=== PATIENT | male | born 1990 | race Caucasian/White ===

== ENCOUNTER 2016-10-26 18:47 | Emergency (ER) | payer OTHER ==
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
--- NOTE | 2016-10-27 13:56 | ED CLINICAL REPORT ---
Clinical Report - Physicians/Mid Levels [facility] [address] [place] [address] 10/26/2016 18:49 Patient: MARY RICHARD Time Seen: 19:27. Arrived- Came in police custody. Historian- police. History limited by altered mental status. HISTORY OF PRESENT ILLNESS Chief Complaint: DRUG OVERDOSE. This occurred just prior to arrival. Toxic symptoms present in ED with drowsiness. Single drug taken- he says that he took 10 tablets of an uncertain strength of Thorazine. No alcohol recently. The patient has been upset. (officer from the [facility] [employer] reports that they had contacted the patient for a previous outstanding warrant. Apparently [facility] he was in an argument with his girlfriend. He told the officer that he took 10 tablets of Thorazine as he wanted to try and get some rest. He also told the officer that he did it because he was irritated with his girlfriend However, he denies any suicidal or homicidal ideation.). REVIEW OF SYSTEMS No chills, fever, sweats, calf pain or chest pain. No cough, difficulty breathing, pedal edema, palpitations or abdominal pain. No constipation, diarrhea, nausea, vomiting or urinary problems. All systems otherwise negative, except as recorded above. PAST HISTORY Problems: no known problems. Additional Surgeries: no known surgeries. Medications: None. Allergies: PCN. SOCIAL HISTORY Current every day heavy tobacco smoker (cigarette)- less than 1 pack per day. History of drug use: marijuana. No alcohol use. ADDITIONAL NOTES The nursing notes have been reviewed. PHYSICAL EXAM Vital Signs: 10/26/2016 18:51 BP: 109/62. HR: 93. RR: 18. O2 saturation: 100%. Temp: 98.1 F. Pain level now: 0/10. Have been reviewed. Appearance: The patient is somnolent. Eyes: Pupils equal, round and reactive to light. No nystagmus. ENT: Normal ENT inspection. Pharynx normal. Neck: Normal inspection. Neck supple. CVS: Normal heart rate and rhythm. Heart sounds normal. Respiratory: No respiratory distress. Breath sounds normal. Abdomen: Soft and nontender. No organomegaly. Back: Normal inspection. Skin: Skin warm and dry. Normal skin color. No rash. Normal skin turgor. Extremities: Extremities exhibit normal ROM. No lower extremity edema. Neuro: Alertness is decreased. LABS, X-RAYS, AND EKG EKG: No acute process. Normal EKG. Rate: 73. Prior EKG unavailable. The study has been independently viewed by me. Laboratory Tests: UA-Culture if indicated: (KATYA: 10/26/2016 00:53) ( [facility] 10/27/2016 01:18) Final results Test Result Flag Units (Reference) URINE COLOR YELLOW URINE APPEARANCE CLEAR URINE GLUCOSE NEGATIVE (NEGATIVE) URINE BILIRUBIN NEGATIVE (NEGATIVE) URINE BILIRUBIN ICTOTEST NEGATIVE (NEGATIVE) URINE KETONE 2+ (NEGATIVE) URINE SPECIFIC GRAVITY >= 1.030 (1.010-1.030) URINE PH 6.0 (5.0-8.0) URINE PROTEIN 1+ (NEGATIVE) URINE UROBILINOGEN 0.2 EU/dL (0.2-1.0) URINE NITRITE NEGATIVE (NEGATIVE) URINE BLOOD NEGATIVE (NEGATIVE) URINE LEUK ESTERASE NEGATIVE (NEGATIVE) URINE RBC RARE rbc/hpf (0-1) URINE WBC 0-1 wbc/hpf (0-1) URINE EPITHELIAL CELLS NONE SEEN EPI/hpf (0-5) URINE BACTERIA NONE SEEN (NONE SEEN) URINE COMMENT CULT NOT INDICATED 2+ MUCUSURINE CULTURES ARE SET-UP BASED ON THE FOLLOWING CRITERIA:POSITIVE NITRITEPOSITIVE LEUKOCYTE ESTERASEGREATER THAN 10 WHITE BLOOD CELLSMODERATE (2+) OR GREATER BACTERIA CBC w Diff: (KATYA: 10/26/2016 20:00) ( [facility] 10/26/2016 20:10) Final results Test Result Flag Units (Reference) WHITE BLOOD COUNT 3.5 L K/uL (4.5-11.5) RED BLOOD COUNT 3.96 L M/uL (4.50-5.90) HEMOGLOBIN 11.8 L gm/dL (13.5-17.5) HEMATOCRIT 34.9 L % (41.0-53.0) MEAN CELL VOLUME 88 fL (80-100) MEAN CORPUSCULAR HGB 30 pg (26-34) MEAN CORPUSCULAR HGB CONC 34 g/dL (31-37) RED CELL DISTRIBUTION WIDTH 12.9 % (11.6-14.8) PLATELET COUNT 175 K/uL (150-400) NEUTROPHIL % 58.4 % (50-75) LYMPH % 23.3 L % (25-40) MONO % 17.1 H % (3-14) EOSINOPHIL % 0.7 % (0-4) BASOPHIL % 0.5 % (0-2) Urine Drug Screen: (KATYA: 10/26/2016 00:53) ( [facility] 10/27/2016 01:30) Final results Test Result Flag Units (Reference) AMPHETAMINE/METHAMPHETAMINE POSITIVE H (NEGATIVE) BARBITURATE NEGATIVE (NEGATIVE) BENZODIAZEPINE NEGATIVE (NEGATIVE) CANNABINOID POSITIVE H (NEGATIVE) COCAINE NEGATIVE (NEGATIVE) ECSTASY POSITIVE H (NEGATIVE) METHADONE NEGATIVE (NEGATIVE) OPIATE NEGATIVE (NEGATIVE) The urine drug screen is a qualitative screening test fordrug overdose and abuse. All screen results should beconsidered as presumptive.Drugs screened for are as follows:BenzodiazepinesCocaineAmphetamines/MetamphetaminesTHC (Tetrahydrocannabinol)OpiatesBarbituratesEcstasyMethadonePositive results are unconfirmed. For confirmation, notifythe lab for the specimen to be sent to the reference lab.All confirmations must be performed by a differentmethodology.The ingestion of natural herbal and plant productscontaining Ephedra/Ephedra metabolites can produce in urineone or more substances capable of cross reacting withamphetamine/methamphetamine immunoassays. These testsprovide a preliminary result only. A more specificalternative chemical method must be used to obtain aconfirmed analytical result. Salicylate Level: (KATYA: 10/26/2016 20:00) ( [facility] 10/26/2016 20:21) Final results Test Result Flag Units (Reference) SALICYLATE <2.8 L mg/dL (2.8-20) CMP: (KATYA: 10/26/2016 20:00) ( MsgRcvd 10/26/2016 20:42) Final results Test Result Flag Units (Reference) GLUCOSE 87 mg/dL (70-110) BUN 15 mg/dL (7-18) CREATININE 0.8 mg/dL (0.6-1.3) Estimated GFR >60 mL/min Estimated GFR- >60 mL/min Note: Persistent reduction over 3 months in eGFR<60 mL/min/1.73 m2 defines CKD. Patients with eGFR values>=60 mL/min/1.73 m2 may also have CKD if evidence ofpersistent proteinuria. Additional information may be foundat www.kidney.org. SODIUM 139 mmol/L (136-145) POTASSIUM 3.0 L mmol/L (3.5-5.1) CHLORIDE 102 mmol/L (98-107) CARBON DIOXIDE 25 mmol/L (21-32) CALCIUM 8.8 mg/dL (8.5-10.1) TOTAL PROTEIN 7.3 g/dL (6.4-8.2) ALBUMIN 3.9 g/dL (3.3-5.0) BILIRUBIN, TOTAL 0.7 mg/dL (0.0-1.0) ALKALINE PHOSPHATASE 56 U/L (46-116) AST (SGOT) 38 H U/L (15-37) ALT (SGPT) 31 U/L (12-78) LIPASE 60 L U/L (73-393) AMYLASE 19 L U/L (25-115) ACETAMINOPHEN < 2.0 L ug/mL (10-30) ETHYL ALCOHOL <3 L mg/dL (3-10) . PROGRESS AND PROCEDURES Course of Care: 21:06 10/26/16. case was discussed with Dr. Sheldon at change of shift. We reviewed the patient's history and physical examination findings. Dr. Sheldon will follow-up on the results of the patient's pending studies, will continue to observe him and will arrange an appropriate disposition for him - MW 23:32 10/26/16. Assumed care at 2100. Lab pending Urine still not obtained at this time. 13:55 10/27/16. Spoke w/ patient now that he is lucid and is adamant that there was no intent of self harm and is not currently suicidal. Patient is stable. Disposition: Discharged home in good and improved condition. Condition: good. CLINICAL IMPRESSION Accidental single drug overdose (Thorazine). INSTRUCTIONS Follow-up: Screening today revealed the patient's blood pressure to be in the normal range. Follow-up with: [facility], , , [address], , [place], [id number] Follow up in about two days. Call for an appointment. (Electronically signed by Moises Mendoza Dr. 10/27/2016 21:40)
--- NOTE | 2016-10-27 13:56 | ED CLINICAL REPORT ---
Clinical Report - Physicians/Mid Levels [facility] [address] [place] [address] 10/26/2016 18:49 Patient: MARY RICHARD Time Seen: 19:27. Arrived- Came in police custody. Historian- police. History limited by altered mental status. HISTORY OF PRESENT ILLNESS Chief Complaint: DRUG OVERDOSE. This occurred just prior to arrival. Toxic symptoms present in ED with drowsiness. Single drug taken- he says that he took 10 tablets of an uncertain strength of Thorazine. No alcohol recently. The patient has been upset. (officer from the [facility] [employer] reports that they had contacted the patient for a previous outstanding warrant. Apparently while they were at [facility] residence he was in an argument with his girlfriend. He told the officer that he took 10 tablets of Thorazine as he wanted to try and get some rest. He also told the officer that he did it because he was irritated with his girlfriend However, he denies any suicidal or homicidal ideation.). REVIEW OF SYSTEMS No chills, fever, sweats, calf pain or chest pain. No cough, difficulty breathing, pedal edema, palpitations or abdominal pain. No constipation, diarrhea, nausea, vomiting or urinary problems. All systems otherwise negative, except as recorded above. PAST HISTORY Problems: no known problems. Additional Surgeries: no known surgeries. Medications: None. Allergies: PCN. SOCIAL HISTORY Current every day heavy tobacco smoker (cigarette)- less than 1 pack per day. History of drug use: marijuana. No alcohol use. ADDITIONAL NOTES The nursing notes have been reviewed. PHYSICAL EXAM Vital Signs: 10/26/2016 18:51 BP: 109/62. HR: 93. RR: 18. O2 saturation: 100%. Temp: 98.1 F. Pain level now: 0/10. Have been reviewed. Appearance: The patient is somnolent. Eyes: Pupils equal, round and reactive to light. No nystagmus. ENT: Normal ENT inspection. Pharynx normal. Neck: Normal inspection. Neck supple. CVS: Normal heart rate and rhythm. Heart sounds normal. Respiratory: No respiratory distress. Breath sounds normal. Abdomen: Soft and nontender. No organomegaly. Back: Normal inspection. Skin: Skin warm and dry. Normal skin color. No rash. Normal skin turgor. Extremities: Extremities exhibit normal ROM. No lower extremity edema. Neuro: Alertness is decreased. LABS, X-RAYS, AND EKG EKG: No acute process. Normal EKG. Rate: 73. Prior EKG unavailable. The study has been independently viewed by me. Laboratory Tests: UA-Culture if indicated: (KATYA: 10/26/2016 00:53) ( [facility] [place] Final results Test Result Flag Units (Reference) URINE COLOR YELLOW URINE APPEARANCE CLEAR URINE GLUCOSE NEGATIVE (NEGATIVE) URINE BILIRUBIN NEGATIVE (NEGATIVE) URINE BILIRUBIN ICTOTEST NEGATIVE (NEGATIVE) URINE KETONE 2+ (NEGATIVE) URINE SPECIFIC GRAVITY >= 1.030 (1.010-1.030) URINE PH 6.0 (5.0-8.0) URINE PROTEIN 1+ (NEGATIVE) URINE UROBILINOGEN 0.2 EU/dL (0.2-1.0) URINE NITRITE NEGATIVE (NEGATIVE) URINE BLOOD NEGATIVE (NEGATIVE) URINE LEUK ESTERASE NEGATIVE (NEGATIVE) URINE RBC RARE rbc/hpf (0-1) URINE WBC 0-1 wbc/hpf (0-1) URINE EPITHELIAL CELLS NONE SEEN EPI/hpf (0-5) URINE BACTERIA NONE SEEN (NONE SEEN) URINE COMMENT CULT NOT INDICATED 2+ MUCUSURINE CULTURES ARE SET-UP BASED ON THE FOLLOWING CRITERIA:POSITIVE NITRITEPOSITIVE LEUKOCYTE ESTERASEGREATER THAN 10 WHITE BLOOD CELLSMODERATE (2+) OR GREATER BACTERIA CBC w Diff: (KATYA: 10/26/2016 20:00) ( [facility] [place] 20:10) Final results Test Result Flag Units (Reference) WHITE BLOOD COUNT 3.5 L K/uL (4.5-11.5) RED BLOOD COUNT 3.96 L M/uL (4.50-5.90) HEMOGLOBIN 11.8 L gm/dL (13.5-17.5) HEMATOCRIT 34.9 L % (41.0-53.0) MEAN CELL VOLUME 88 fL (80-100) MEAN CORPUSCULAR HGB 30 pg (26-34) MEAN CORPUSCULAR HGB CONC 34 g/dL (31-37) RED CELL DISTRIBUTION WIDTH 12.9 % (11.6-14.8) PLATELET COUNT 175 K/uL (150-400) NEUTROPHIL % 58.4 % (50-75) LYMPH % 23.3 L % (25-40) MONO % 17.1 H % (3-14) EOSINOPHIL % 0.7 % (0-4) BASOPHIL % 0.5 % (0-2) Urine Drug Screen: (KATYA: 10/26/2016 00:53) ( [facility] [place] 10/27/2016 01:30) Final results Test Result Flag Units (Reference) AMPHETAMINE/METHAMPHETAMINE POSITIVE H (NEGATIVE) BARBITURATE NEGATIVE (NEGATIVE) BENZODIAZEPINE NEGATIVE (NEGATIVE) CANNABINOID POSITIVE H (NEGATIVE) COCAINE NEGATIVE (NEGATIVE) ECSTASY POSITIVE H (NEGATIVE) METHADONE NEGATIVE (NEGATIVE) OPIATE NEGATIVE (NEGATIVE) The urine drug screen is a qualitative screening test fordrug overdose and abuse. All screen results should beconsidered as presumptive.Drugs screened for are as follows:BenzodiazepinesCocaineAmphetamines/MetamphetaminesTHC (Tetrahydrocannabinol)OpiatesBarbituratesEcstasyMethadonePositive results are unconfirmed. For confirmation, notifythe lab for the specimen to be sent to the reference lab.All confirmations must be performed by a differentmethodology.The ingestion of natural herbal and plant productscontaining Ephedra/Ephedra metabolites can produce in urineone or more substances capable of cross reacting withamphetamine/methamphetamine immunoassays. These testsprovide a preliminary result only. A more specificalternative chemical method must be used to obtain aconfirmed analytical result. Salicylate Level: (KATYA: 10/26/2016 20:00) ( [facility] [place] 10/26/2016 20:21) Final results Test Result Flag Units (Reference) SALICYLATE <2.8 L mg/dL (2.8-20) CMP: (KATYA: 10/26/2016 20:00) ( [facility] 10/26/2016 20:42) Final results Test Result Flag Units (Reference) GLUCOSE 87 mg/dL (70-110) BUN 15 mg/dL (7-18) CREATININE 0.8 mg/dL (0.6-1.3) Estimated GFR >60 mL/min Estimated GFR- >60 mL/min Note: Persistent reduction over 3 months in eGFR<60 mL/min/1.73 m2 defines CKD. Patients with eGFR values>=60 mL/min/1.73 m2 may also have CKD if evidence ofpersistent proteinuria. Additional information may be foundat www.kidney.org. SODIUM 139 mmol/L (136-145) POTASSIUM 3.0 L mmol/L (3.5-5.1) CHLORIDE 102 mmol/L (98-107) CARBON DIOXIDE 25 mmol/L (21-32) CALCIUM 8.8 mg/dL (8.5-10.1) TOTAL PROTEIN 7.3 g/dL (6.4-8.2) ALBUMIN 3.9 g/dL (3.3-5.0) BILIRUBIN, TOTAL 0.7 mg/dL (0.0-1.0) ALKALINE PHOSPHATASE 56 U/L (46-116) AST (SGOT) 38 H U/L (15-37) ALT (SGPT) 31 U/L (12-78) LIPASE 60 L U/L (73-393) AMYLASE 19 L U/L (25-115) ACETAMINOPHEN < 2.0 L ug/mL (10-30) ETHYL ALCOHOL <3 L mg/dL (3-10) . PROGRESS AND PROCEDURES Course of Care: 21:06 10/26/16. case was discussed with Dr. Sheldon at change of shift. We reviewed the patient's history and physical examination findings. Dr. Sheldon will follow-up on the results of the patient's pending studies, will continue to observe him and will arrange an appropriate disposition for him - MW 23:32 10/26/16. Assumed care at 2100. Lab pending Urine still not obtained at this time. 13:55 10/27/16. Spoke w/ patient now that he is lucid and is adamant that there was no intent of self harm and is not currently suicidal. Patient is stable. Disposition: Discharged home in good and improved condition. Condition: good. CLINICAL IMPRESSION Accidental single drug overdose (Thorazine). INSTRUCTIONS Follow-up: Screening today revealed the patient's blood pressure to be in the normal range. Follow-up with: [facility], , , [address], , [place], [id number] Follow up in about two days. Call for an appointment. (Electronically signed by Moises Mendoza Dr. 10/27/2016 21:40)
--- NOTE | 2016-10-27 13:57 | ED ORDER SUMMARY ---
..... Patient: MARY RICHARD OrderSheet [facility] VisitID: [id number] [place] [address] 26y, M Registration Date/Time: 10/26/2016 ORDER SHEET Weight: 68.0 kg (stated) Allergies: PCN GENERAL ORDERS: Gis Application Developer (Continuous) (19:10/26/2016 Louise AMBROSE) (Ack 19:29 SRedonta) (7:49 MWinterer R.N.) CBC w Diff Urgent (19:10/26/2016 Louise AMBROSE) (Ack 19:29 SRedonta) (20:03 RCollier R.N.) CMP Urgent (:10/26/2016 Louise AMBROSE) (Ack 19:29 SRedonta) (20:03 RCollier R.N.) UA-Culture if indicated Urgent (:10/26/2016 Louise AMBROSE) (Ack 19:29 SRedonta) (0:55 CBradburn R.N.) Amylase Urgent (:10/26/2016 Louise AMBROSE) (Ack 19:29 SRedonta) (20:04 RCollier R.N.) Lipase Urgent (:10/26/2016 Louise AMBROSE) (Ack 19:29 SRedmond) (20:04 RCollier R.N.) Acetaminophen Level Urgent (:10/26/2016 Louise AMBROSE) (Ack 19:29 SRedonta) (20:04 RCollier R.N.) Salicylate Level Urgent (:10/26/2016 Louise AMBROSE) (Ack 19:29 SRedonta) (20:04 RCollier R.N.) Urine Drug Screen Urgent (:10/26/2016 Louise AMBROSE) (Ack 19:29 SRedonta) (0:55 CBradburn R.N.) Ethyl Alcohol Urgent (:10/26/2016 Louise AMBROSE) (Ack 19:29 SRedonta) (20:04 RCollier R.N.) EKG - ER Stat (:10/26/2016 Louise AMBROSE) (Ack 19:29 SRemeccaond) (19:42 SRedonta) Pulse oximeter (19:28 10/26/2016 Louise AMBROSE) (Ack 19:29 Aleks) (0:55 CBtere R.N.) MEDICATION ORDERS: IV FLUIDS: IV Saline Lock (19:10/26/2016 Louise AMBROSE) (Ack 19:56 RCollier R.N.) (0:56 Gordo R.N.) IV NS : initial bolus 1000 mL (1000 mL/hr), then none - (NOW); Routine (02:21 10/27/2016 Kat AMBROSE) (2:27 Gordo R.N.) ORDER SHEET NOTES: [Electronically signed by Lulu Hicks R.N. (15:41 10/27/2016)] [Electronically signed by Moises Mendoza Dr. (21:40 10/27/2016)] [Electronically locked/signed by Lulu Hicks R.N. (15:41 10/27/2016)]
--- NOTE | 2016-10-27 13:57 | ED ORDER SUMMARY ---
..... Patient: MARY RICHARD OrderSheet [facility] VisitID: [id number] [place] [address] 26y, M Registration Date/Time: 10/26/2016 ORDER SHEET Weight: 68.0 kg (stated) Allergies: PCN GENERAL ORDERS: Microwave Remote Sensing Scientist (Continuous) (19:10/26/2016 Louise AMBROSE) (Ack 19:29 SRedonta) (7:49 MWinterer R.N.) CBC w Diff Urgent (19:10/26/2016 Louise AMBROSE) (Ack 19:29 SRedonta) (20:03 RCollier R.N.) CMP Urgent (:10/26/2016 Louise AMBROSE) (Ack 19:29 SRedonta) (20:03 RCollier R.N.) UA-Culture if indicated Urgent (:10/26/2016 Louise AMBROSE) (Ack 19:29 SRedonta) (0:55 CBradburn R.N.) Amylase Urgent (:10/26/2016 Louise AMBROSE) (Ack 19:29 SRedonta) (20:04 RCollier R.N.) Lipase Urgent (:10/26/2016 Louise AMBROSE) (Ack 19:29 SRedmond) (20:04 RCollier R.N.) Acetaminophen Level Urgent (:10/26/2016 Louise AMBROSE) (Ack 19:29 SRedonta) (20:04 RCollier R.N.) Salicylate Level Urgent (:10/26/2016 Louise AMBROSE) (Ack 19:29 SRedonta) (20:04 RCollier R.N.) Urine Drug Screen Urgent (:10/26/2016 Louise AMBROSE) (Ack 19:29 SRedonta) (0:55 CBradburn R.N.) Ethyl Alcohol Urgent (:10/26/2016 Louise AMBROSE) (Ack 19:29 SRedonta) (20:04 RCollier R.N.) EKG - ER Stat (:10/26/2016 Louise AMBROSE) (Ack 19:29 SRemeccaond) (19:42 SRedonta) Pulse oximeter (19:28 10/26/2016 Louise AMBROSE) (Ack 19:29 Aleks) (0:55 CBtere R.N.) MEDICATION ORDERS: IV FLUIDS: IV Saline Lock (19:10/26/2016 Louise AMBROSE) (Ack 19:56 RCollier R.N.) (0:56 Gordo R.N.) IV NS : initial bolus 1000 mL (1000 mL/hr), then none - (NOW); Routine (02:21 10/27/2016 Kat AMBROSE) (2:27 Gordo R.N.) ORDER SHEET NOTES: [Electronically signed by Lulu Hicks R.N. (15:41 10/27/2016)] [Electronically signed by Moises Mendoza Dr. (21:40 10/27/2016)] [Electronically locked/signed by Lulu Hicks R.N. (15:41 10/27/2016)]
--- NOTE | 2016-10-27 21:40 | ED MED RECONCILIATION SUMMARY ---
Patient: MARY RICHARD Medication Reconciliation Report [facility] VisitID: [id number] [address] [place] [address] 26y, M Registration Date/Time: 10/26/2016 Weight: 68.0 kg Height/Length: 72 in. BMI: 20.3 ALLERGIES: PCN The patient's Home Medications are listed below: NONE. The source(s) of the original Home Medication information: patient The following Medications were given to the patient in the Emergency Department: IV NS IV Fluids bolus 1000 mL wide open, administered: 10/27/2016 2:27:00 AM The following Medications were prescribed to the patient: None.
--- NOTE | 2016-10-27 21:40 | ED MAR SUMMARY ---
..... Medication Administration Record [facility] [address] [place] [address] Patient: MARY RICHARD Visit ID: [id number] 26y, M Weight: 68.0 kg Height/Length: 72 in BMI: 20.3 ALLERGIES: PCN Start 02:27 10/27/2016 Naima Murillo R.N., Stop 03:51 10/27/2016 Naima Murillo R.N. Medication Administered: IV NS (SALINE), Dose: IV Fluids, Bolus: 1000 mL wide open, Dispensed: 1000 mL bag, Site: #1 right AC. Medication Ordered: IV NS : initial bolus 1000 mL (1000 mL/hr), then none - (NOW); Routine.
--- NOTE | 2016-10-27 21:40 | ED MED RECONCILIATION SUMMARY ---
Patient: MARY RICHARD Medication Reconciliation Report [facility] VisitID: [id number] [address] [place] [address] 26y, M Registration Date/Time: 10/26/2016 Weight: 68.0 kg Height/Length: 72 in. BMI: 20.3 ALLERGIES: PCN The patient's Home Medications are listed below: NONE. The source(s) of the original Home Medication information: patient The following Medications were given to the patient in the Emergency Department: IV NS IV Fluids bolus 1000 mL wide open, administered: 10/27/2016 2:27:00 AM The following Medications were prescribed to the patient: None.
--- NOTE | 2016-10-27 21:40 | ED DISCHARGE INSTRUCTIONS ---
Patient: MARY RICHARD General Instructions [facility] VisitID: [id number] [address] [place] [address] 26y, M Registration Date/Time: 10/26/2016 Accidental single drug overdose (Thorazine). INSTRUCTIONS Follow-up: Screening today revealed the patient's blood pressure to be in the normal range. Follow-up with: [facility], , , [address], , [place], [id number] Follow up in about two days. Call for an appointment. ADDITIONAL INFORMATION Accidental Ingestion:Non-Toxic [Adult] You have been evaluated and treated for taking too much of a medicine or swallowing a chemical product. There is no sign of toxic effect at this time. It is very unlikely that any new symptoms will appear. As a safeguard, you must be alert for symptoms during the next 24 hours (see below). The exact symptom will depend on what was swallowed. Home Care: If LIQUID CHARCOAL was given to neutralize what was swallowed, it will cause a black color to the stools for 1-2 days. Usually, a laxative (sorbitol) is given with charcoal to speed the removal of any toxins from the intestinal tract. This may cause diarrhea for up to 24 hours. If no laxative was given with charcoal, you may get constipated. If this occurs, you may take an kczc-hsw-fytwgnd laxative such as Dulcolax pills or suppository. Prevention: Keep medicines, pesticides, and other household chemicals in their original containers. Clearly tank all harmful products if a different bottle is used. Follow Up with your doctor if all symptoms do not resolve within 24 hours or if constipation is not relieved by one or two doses of laxatives. Get Prompt Medical Attention if any of the following occur: Excess drowsiness or inability to be awakened Rapid heart beat, shakiness or seizure Fast breathing (over 25 breaths/minute) or slow breathing (less than 8 breaths/minute) Feeling shortness of breath Fever of 100.4F (38C) or higher, or as directed by your healthcare provider Vomiting or diarrhea for more than 24 hours Blood in stools or vomit (black or red color) Chest or abdominal pain Dizziness, weakness or fainting You have been given the following additional information: Overdose, Accidental (Adult) (Electronically signed by Moises Mendoza Dr. 10/27/2016 21:40)
--- NOTE | 2016-10-27 21:40 | ED DISCHARGE INSTRUCTIONS ---
Patient: MARY RICHARD General Instructions [facility] VisitID: [id number] [address] [place] [place] [address] 26y, M Registration Date/Time: 10/26/2016 Accidental single drug overdose (Thorazine). INSTRUCTIONS Follow-up: Screening today revealed the patient's blood pressure to be in the normal range. Follow-up with: [facility], , , [address], , [place], [id number] Follow up in about two days. Call for an appointment. ADDITIONAL INFORMATION Accidental Ingestion:Non-Toxic [Adult] You have been evaluated and treated for taking too much of a medicine or swallowing a chemical product. There is no sign of toxic effect at this time. It is very unlikely that any new symptoms will appear. As a safeguard, you must be alert for symptoms during the next 24 hours (see below). The exact symptom will depend on what was swallowed. Home Care: If LIQUID CHARCOAL was given to neutralize what was swallowed, it will cause a black color to the stools for 1-2 days. Usually, a laxative (sorbitol) is given with charcoal to speed the removal of any toxins from the intestinal tract. This may cause diarrhea for up to 24 hours. If no laxative was given with charcoal, you may get constipated. If this occurs, you may take an xzij-ibj-hwlzazw laxative such as Dulcolax pills or suppository. Prevention: Keep medicines, pesticides, and other household chemicals in their original containers. Clearly tank all harmful products if a different bottle is used. Follow Up with your doctor if all symptoms do not resolve within 24 hours or if constipation is not relieved by one or two doses of laxatives. Get Prompt Medical Attention if any of the following occur: Excess drowsiness or inability to be awakened Rapid heart beat, shakiness or seizure Fast breathing (over 25 breaths/minute) or slow breathing (less than 8 breaths/minute) Feeling shortness of breath Fever of 100.4F (38C) or higher, or as directed by your healthcare provider Vomiting or diarrhea for more than 24 hours Blood in stools or vomit (black or red color) Chest or abdominal pain Dizziness, weakness or fainting You have been given the following additional information: Overdose, Accidental (Adult) (Electronically signed by Moises Mendoza Dr. 10/27/2016 21:40)
--- NOTE | 2016-10-27 21:40 | ED MAR SUMMARY ---
..... Medication Administration Record [facility] [address] [place] [address] Patient: MARY RICHARD Visit ID: [id number] 26y, M Weight: 68.0 kg Height/Length: 72 in BMI: 20.3 ALLERGIES: PCN Start 02:27 10/27/2016 Naima Murillo R.N., Stop 03:51 10/27/2016 Naima Murillo R.N. Medication Administered: IV NS (SALINE), Dose: IV Fluids, Bolus: 1000 mL wide open, Dispensed: 1000 mL bag, Site: #1 right AC. Medication Ordered: IV NS : initial bolus 1000 mL (1000 mL/hr), then none - (NOW); Routine.
== END 2016-10-27 14:10 | disposition home or self-care (01) ==
LOC: ED SRH 18:47
DX: T43.3X1A Poisoning by phenothiazine antipsychotics and neuroleptics, accidental (unintentional), initial encounter (principal); F17.210 Nicotine dependence, cigarettes, uncomplicated; Z88.0 Allergy status to penicillin; X58.XXXA Exposure to other specified factors, initial encounter; Y93.9 Activity, unspecified; Y99.9 Unspecified external cause status; Y92.009 Unspecified place in unspecified non-institutional (private) residence as the place of occurrence of the external cause
CPT/HCPCS: 90004; 90100; 92010; 92235; 92530; 92760; 92761; 92762; 92763; 92764; 92765; 92766; 92767; 92780; 95059; 97000